=== PATIENT | female | born 2000 | race African-American/Black ===

== ENCOUNTER 2021-06-09 09:13 | Emergency (ER) | payer BC ==
[~2021-06-09] VITALS: Ht 149.9 cm; Wt 48.1 kg
[~2021-06-09 09:13] MED LIST: ACETAMINOPHEN-1 EAC1 PO; ZOFRAN ODT4 MG PO
[2021-06-09 10:12] VITALS: BP 108/71
== END 2021-06-09 10:12 | disposition home or self-care (01) ==
LOC: ER 09:13
DX: U07.1 COVID-19 (principal)